=== PATIENT | female | born 1950 | race Native Hawaiian/Other Pacific Islander ===

== ENCOUNTER 2023-04-03 12:37 | Emergency (ER) | payer BC, OTHER ==
[~2023-04-03] VITALS: Ht 154.9 cm; Wt 55.3 kg
[2023-04-03 12:42] VITALS: O2SAT 97
[2023-04-03] MEDS ORDERED: PANT40TA49 PO (13:02)
[2023-04-03] MEDS ORDERED: SPIR50TA5 PO (13:02)
[2023-04-03] MEDS ORDERED: FAMO40TA7 PO (13:02)
[2023-04-03] MEDS ORDERED: ROSU5TAB13 PO (13:02)
[2023-04-03 13:35] LABS: CARBON DIOXIDE 22 mmol/L (21-32); CHLORIDE 106 mmol/L (98-107); MAGNESIUM 2.2 mg/dL (1.8-2.4); POTASSIUM 3.9 mmol/L (3.5-5.1); UREA NITROGEN, BLOOD 12 mg/dL (7-18)
[2023-04-03 13:40] LABS: HEMATOCRIT 42.9 % (31.2-41.9); MEAN CORPUSCULAR HEMOGLOBIN 31.7 uug (24.7-32.8); PLATELET COUNT (AUTO) 179 K/uL (179-408)
[2023-04-03 13:47] LABS: ALANINE AMINOTRANSFERASE 52 U/L (14-59); ALKALINE PHOSPHATASE 85 U/L (50-136); ASPARTATE AMINOTRANSFERASE 30 U/L (15-37); BILIRUBIN,DIRECT 0.3 mg/dL (0.0-0.2); TOTAL PROTEIN, SERUM 7.2 g/dL (6.4-8.2)
[2023-04-03 13:48] LABS: THYROID STIMULATING HORMONE 0.911 mIU/mL (0.358-3.740)
--- NOTE | 2023-04-03 13:50 | NUR ---
Patient presented to the ER with C/O CP, discomfort, A/O X 4, denies palpitation/nausea/vomiting. Patient placed on the shelter monitor. ECG, (RT) F/A #20G angio-cath inserted, site WNL, labs collected and sent. CXR completed. Patient is stable on the stretcher in the lowest position, wheels locked, call [facility] within reach and awaiting disposition.
== END 2023-04-03 17:28 | disposition home or self-care (01) ==
LOC: ER 12:37
DX: R07.89 Other chest pain (principal); R00.2 Palpitations; Z91.040 Latex allergy status; Z79.899 Other long term (current) drug therapy
CPT/HCPCS: 36415; 71045; 83735; 84443; 84484; 85025; 93005; A4663